=== PATIENT | male | born 1990 | race African-American/Black ===

== ENCOUNTER 2018-11-09 12:29 | Day surgery (SDC) | payer OTHER ==
[2018-11-09] VITALS (18 sets, daily range): BP systolic 129–156; BP diastolic 71–104; PULSE 66–102; RESP 12–24; Ht 172.7 cm; Wt 72.7 kg
[~2018-11-09] VITALS: Ht 172.7 cm; Wt 72.7 kg
[~2018-11-09 12:29] MED LIST: BUPIVACAINE LIPOSOME/PF 266 MG/20 ML VIAL INFIL SCH; SPIR100T4 PO
[2018-11-09] MEDS ORDERED: LACTATED RINGER'S 1,000 ML IV SCH (14:00)
[2018-11-09] MEDS ORDERED: BUPIVACAINE 0.25%/EPI (SDV) 10 ML INJ ONE (15:59)
[2018-11-09] MEDS ORDERED: POLYMYXIN/BACITRACIN 1L IRRIG ONE (15:59)
[2018-11-09] MEDS ORDERED: GENTAMICIN 80 MG INJ ONE (15:59)
[2018-11-09] MEDS ORDERED: SUGAMMADEX SODIUM 200 MG/2 ML VIAL IV ONE (16:25)
[2018-11-09] MEDS ORDERED: ROCURONIUM 50 MG INJ ONE (16:25)
[2018-11-09] MEDS ORDERED: ONDANSETRON 4 MG INJ ONE (16:25)
[2018-11-09] MEDS ORDERED: DESFLURANE 15 MIN ONE (16:25)
[2018-11-09] MEDS ORDERED: CEFAZOLIN 1 GM INJ ONE (16:25)
[2018-11-09] MEDS ORDERED: PROPOFOL 200 MG INJ ONE (16:25)
[2018-11-09] MEDS ORDERED: HYDROmorphONE 2 MG/ML SYG ONE (16:25)
[2018-11-09] MEDS ORDERED: LIDOCAINE 1% (MDV) 20 ML INJ ONE (16:25)
[2018-11-09] MEDS ORDERED: MIDAZOLAM 1 MG/ML 2 ML INJ ONE ×3 (16:25)
[2018-11-09] MEDS ORDERED: FENTAnyl 50 MCG/ML VIAL ONE (16:25)
[2018-11-09] MEDS ORDERED: morphine 2 MG INJ IV PRN (16:30)
[2018-11-09] MEDS ORDERED: HYDROCODONE/APAP (5/325) TAB PO PRN (16:30)
[2018-11-09] MEDS ORDERED: ONDANSETRON 4 MG INJ IV PRN ×2 (16:30→19:00)
[2018-11-09] MEDS ORDERED: ACETAMINOPHEN 325 MG TAB PO PRN (16:30)
[2018-11-09] MEDS ORDERED: POLYMYXIN/BACITRACIN 1L IRRIG IRR ONE (16:48)
[2018-11-09] MEDS ORDERED: HYDROmorphONE 1 MG/5 ML IV SYRINGE IV PRN ×2 (19:00)
[2018-11-09] MEDS ORDERED: FENTAnyl 50 MCG/ML VIAL IV PRN ×2 (19:00)
[2018-11-09] MEDS ORDERED: ACETAMINOPHEN 1000MG/100ML IV 100 ML IVPB ONE (19:00)
[2018-11-09] MEDS ORDERED: MEPERIDINE 25 MG INJ IV PRN (19:00)
[2018-11-09] MEDS ORDERED: ACETAMINOPHEN 1000MG/100ML IV 100 ML ONE (19:09)
== END 2018-11-09 20:25 | disposition home or self-care (01) ==
LOC: SDS 12:29
PROVIDERS: ATTEND Surgery Plastic and Reconstructive Surgery
DX: F64.9 Gender identity disorder, unspecified (principal)
CPT/HCPCS: 19325; C9290; J0131; J1580; J2405; Z7512; Z7610; J0690; J1170; J2250; J3010